=== PATIENT | male | born 1970 | race Caucasian/White ===

== ENCOUNTER 2019-03-18 09:13 | Day surgery (SDC) | payer OTHER ==
[2019-03-16 10:52] LABS: EOSINOPHILS # (AUTO) 0.2 X10'3 (0-0.9); EOSINOPHILS % (AUTO) 0.6 % (0-6); MONOCYTES # (AUTO) 0.9 X10'3 (0-0.9); MONOCYTES % (AUTO) 2.4 % (2-12); PRE OP PLATELET COUNT 248 X10'3 (140-440)
[2019-03-16 10:54] LABS: BASOPHILS % (AUTO) 0.1 % (0-1); LYMPHOCYTES # (AUTO) 31.3 X10'3 (1.1-4.8); LYMPHOCYTES % (AUTO) 83.5 % (21-51); MEAN CORPUSCULAR HEMOGLOBIN 30.3 PG (27.0-31.0); MEAN CORPUSCULAR HGB CONC 33.9 g/dL (33.0-36.5); MEAN CORPUSCULAR VOLUME 89.4 FL (78-98); MEAN PLATELET VOLUME 7.6 FL (7.4-10.4); NEUTROPHILS % (AUTO) 13.4 % (42-75); PRE OP HEMATOCRIT 42.9 % (42.0-52.0); PRE OP HEMOGLOBIN 14.5 g/dL (14.0-17.9); RED CELL DISTRIBUTION WIDTH 13.5 % (11.5-14.5)
[2019-03-16 11:05] LABS: ALBUMIN/GLOBULIN RATIO 1.4 (1.1-1.5); ALKALINE PHOSPHATASE 68 IU/L (46-116); BLOOD UREA NITROGEN 20 MG/DL (7-18); BUN/CREATININE RATIO 17.1 (5.4-32.0); CALCIUM 8.9 MG/DL (8.5-10.1); CHLORIDE 106 MMOL/L (99-107); CREATININE 1.17 MG/DL (0.60-1.10); PRE OP ALT 37 U/L (30-65); PRE OP ANION GAP 6 (8-16); PRE OP AST 22 U/L (10-37); PRE OP BILIRUB, TOTAL 0.4 MG/DL (0.0-1.0); PRE OP GLUCOSE 125 MG/DL (70-104); PRE OP POTASSIUM 4.1 MMOL/L (3.4-5.1); PRE OP SODIUM 141 MMOL/L (135-145); TOTAL CARBON DIOXIDE 28.6 MMOL/L (24-32); TOTAL PROTEIN 6.9 G/DL (6.4-8.2); eGFR 66 ML/MIN
[2019-03-16 11:43] LABS: PLATELET ESTIMATE NORMAL; SMUDGE CELLS 1+; TOTAL CELLS COUNTED 100
[2019-03-16 11:45] LABS: ROULEAUX 1+
[~2019-03-18] VITALS: Ht 188 cm; Wt 109.4 kg
[~2019-03-18 09:13] MED LIST: ACET-2615 PO; AMLO5TAB PO; ASPI-974 PO; BUPIVAcaine/PF 2.5mg/ml (0.25%) 10ml vial ONE; CELE-193 PO; CHOL10002 PO; DICLOFENAC 1% TOP; MULT-1172; RIZA10TA27 PO; SUMA100T PO; ceFAZolin 2gm in dextrose, iso 100 ML IV ONE; famotidine 20mg tablet PO ONE; ringers solution, lacted 1,000 ML IV SCH
[2019-03-18 09:45] VITALS: BP 128/77
[2019-03-18] MEDS ORDERED: ringers solution, lacted 1,000 ML IV SCH (09:57)
[2019-03-18] MEDS ORDERED: morphine 4 MG/ML inj SYRINge IV PRN ×2 (10:00)
[2019-03-18] MEDS ORDERED: ondansetron/PF 4mg/2ml inj IV PRN (10:00)
[2019-03-18] MEDS ORDERED: LIDOcaine 0.5% (5mg/ml) 50ml vial ONE (10:00)
[2019-03-18] MEDS ORDERED: proCHLORperazine 10 MG/2 ml inj IV PRN (10:00)
[2019-03-18] MEDS ORDERED: meperidine/PF 25mg/ml syringe IV PRN ×3 (10:00)
[2019-03-18] MEDS ORDERED: propofol 10mg/ml 20ml vial IV ONE (12:34)
[2019-03-18] MEDS ORDERED: fentaNYL/PF 50MCG/1 ML 2ML syringe ONE (12:38)
[2019-03-18] MEDS ORDERED: MIDAZolam 5mg/5ml vial ONE (12:42)
[2019-03-18 13:12] VITALS: BP 111/68
--- NOTE | 2019-03-18 13:12 | NUR ---
Received from OR via , accompanied by Anesthesiologist DR MCQUEEN and report given by Anesthesiolgist. AWAKENS TO VOICE. VITALS STABLE. DRESSINGS DI. CARA PAIN. UNABLE TO MOVE RUE DUE TO BLOCK. FINGERS WARM AND PINK.
[2019-03-18 13:22] VITALS: BP 110/61
[2019-03-18 13:32] VITALS: BP 106/72
[2019-03-18 13:42] VITALS: BP 108/70
--- NOTE | 2019-03-18 14:02 | NUR ---
AWAKE AND ORIENTED. VITALS STABLE. DRESSINGS DI. CARA PAIN. IS MOVING RUE AT THIS TIME. HOME WITH AT THIS TIME.
== END 2019-03-18 14:02 | disposition home or self-care (01) ==
LOC: PAS 09:13
PROVIDERS: ATTEND Orthopaedic Surgery Hand Surgery
DX: G56.01 Carpal tunnel syndrome, right upper limb (principal); G56.21 Lesion of ulnar nerve, right upper limb; F32.9 Major depressive disorder, single episode, unspecified; F41.9 Anxiety disorder, unspecified; Z87.891 Personal history of nicotine dependence
CPT/HCPCS: 29848; 36415; 64718; 80053; 82948; 85025; J0690; J2001; J2250; J2704; J3010; J3490; A6449; A7000; J7120

== ENCOUNTER 2019-04-15 05:15 | Day surgery (SDC) | payer OTHER ==
[2019-04-15] VITALS (8 sets, daily range): BP systolic 112–136; BP diastolic 59–80
[~2019-04-15] VITALS: Ht 185.4 cm; Wt 108.3 kg
[~2019-04-15 05:15] MED LIST changes: -BUPIVAcaine/PF 2.5mg/ml (0.25%) 10ml vial ONE; -CELE-193 PO; +TRAZ-251 PO; -ceFAZolin 2gm in dextrose, iso 100 ML IV ONE; -famotidine 20mg tablet PO ONE; -ringers solution, lacted 1,000 ML IV SCH
[2019-04-15] MEDS ORDERED: famotidine 20mg tablet PO ONE (05:30)
[2019-04-15] MEDS ORDERED: cefazolin/dext.iso 2gm/100ml 100 ML IV ONE (05:30)
[2019-04-15] MEDS ORDERED: ringers solution, lacted 1,000 ML IV SCH (05:30)
[2019-04-15] MEDS ORDERED: LIDOcaine 1% (10mg/ml) 2ml vial ONE (05:45)
[2019-04-15 06:25] LABS: MEAN CORPUSCULAR VOLUME 89.5 FL (78-98); RED CELL DISTRIBUTION WIDTH 13.4 % (11.5-14.5)
[2019-04-15 06:26] LABS: BASOPHILS % (AUTO) 0.1 % (0-1); EOSINOPHILS # (AUTO) 0.4 X10'3 (0-0.9); EOSINOPHILS % (AUTO) 1.1 % (0-6); LYMPHOCYTES # (AUTO) 27.4 X10'3 (1.1-4.8); LYMPHOCYTES % (AUTO) 82.9 % (21-51); MEAN CORPUSCULAR HEMOGLOBIN 30.8 PG (27.0-31.0); MEAN CORPUSCULAR HGB CONC 34.4 g/dL (33.0-36.5); MEAN PLATELET VOLUME 8.2 FL (7.4-10.4); MONOCYTES # (AUTO) 0.9 X10'3 (0-0.9); MONOCYTES % (AUTO) 2.8 % (2-12); NEUTROPHILS # (AUTO) 4.3 X10'3 (1.8-7.7); NEUTROPHILS % (AUTO) 13.1 % (42-75); PRE OP HEMATOCRIT 41.2 % (42.0-52.0); PRE OP HEMOGLOBIN 14.2 g/dL (14.0-17.9); PRE OP PLATELET COUNT 217 X10'3 (140-440)
[2019-04-15] MEDS ORDERED: SUMAtriptan 25 MG tablet PO ONE (06:35)
[2019-04-15 06:40] LABS: ALBUMIN 3.8 G/DL (3.4-5.0); ALBUMIN/GLOBULIN RATIO 1.3 (1.1-1.5); ALKALINE PHOSPHATASE 66 IU/L (46-116); BLOOD UREA NITROGEN 25 MG/DL (7-18); BUN/CREATININE RATIO 22.3 (5.4-32.0); CALCIUM 8.7 MG/DL (8.5-10.1); CHLORIDE 107 MMOL/L (99-107); CREATININE 1.12 MG/DL (0.60-1.10); PRE OP ALT 48 U/L (30-65); PRE OP ANION GAP 7 (8-16); PRE OP AST 21 U/L (10-37); PRE OP BILIRUB, TOTAL 1.1 MG/DL (0.0-1.0); PRE OP GLUCOSE 92 MG/DL (70-104); PRE OP POTASSIUM 3.9 MMOL/L (3.4-5.1); PRE OP SODIUM 141 MMOL/L (135-145); TOTAL CARBON DIOXIDE 26.9 MMOL/L (24-32); TOTAL PROTEIN 6.8 G/DL (6.4-8.2); eGFR 69 ML/MIN
[2019-04-15] MEDS ORDERED: LIDOcaine 0.5% (5mg/ml) 50ml vial ONE (07:14)
[2019-04-15] MEDS ORDERED: fentaNYL/PF 50MCG/1 ML 2ML syringe ONE ×2 (07:16→07:23)
[2019-04-15] MEDS ORDERED: midazolam 2 mg/2 ml injection ONE (07:23)
[2019-04-15] MEDS: BUPIVAcaine/PF 2.5mg/ml (0.25%) 10ml vial ONE ×2 (07:31→10:27)
--- NOTE | 2019-04-15 07:50 | NUR ---
Received from OR via BED, accompanied by Anesthesiologist DR DAVIDSON and report given by Anesthesiolgist. PATIENT A&OX4, DENIES PAIN, V/S WNL, NEUROVASCULAR CHECKS INTACT, 20G PIV RUE, SCD ON, DRESSING TO LEFT ELBOW AND WRIST CDI ELEVATED WITH ICEBAG APPLIED.
[2019-04-15] MEDS ORDERED: propofol inj 20 ML IV ONE (07:54)
--- NOTE | 2019-04-15 08:50 | NUR ---
PATIENT A&OX4, DENIES PAIN, V/S WNL, NEUROVASCULAR CHECKS INTACT, 20G PIV RUE D/C, SCD OFF, DRESSING TO LEFT ELBOW WRIST CDI ELEVATED WITH ICEBAG APPLIED. I HAVE REVIEWED D/C INSTRUCTIONS WITH PATIENT AND FAMILY AND THEY HAVE VERBALIZED UNDERSTANDING. PATIENT D/C HOME WITH ALL BELONGINGS AND FAMILY GAVE TRANSPORT HOME.
[2019-04-15 09:16] LABS: TOTAL CELLS COUNTED 100
[2019-04-15 09:18] LABS: PLATELET ESTIMATE NORMAL
[2019-04-15 09:19] LABS: SMUDGE CELLS 2+
== END 2019-04-15 08:50 | disposition home or self-care (01) ==
LOC: PAS 05:15
PROVIDERS: ATTEND Orthopaedic Surgery Hand Surgery
DX: G56.02 Carpal tunnel syndrome, left upper limb (principal); G56.22 Lesion of ulnar nerve, left upper limb; Z79.899 Other long term (current) drug therapy; Z87.891 Personal history of nicotine dependence
CPT/HCPCS: 29848; 36415; 64718; 80053; 82948; 85025; J0690; J2001; J2250; J2704; J3010; J3490; A6449; A7000; J7120